=== PATIENT | female | born 1945 | race Caucasian/White ===

== ENCOUNTER 2018-02-03 09:54 | Observation (INO) | payer OTHER ==
[~2018-02-03] VITALS: Ht 167.6 cm; Wt 99.9 kg
[~2018-02-03 09:54] MED LIST: ALDACTONE25 MG PO; ALPRAZOLAM0.25 MG PO; ASPIR 8181 M1 PO; ASPIRIN81 M1 PO; AVAPRO300 MG PO; AVAPRO75 MG PO; Aldactone PO; Ascorbic Acid PO; Aspirin Chewable PO; BIOTIN1000 MICRO PO; Biotin PO; CALCIO DEL MAR500 MG PO; CALCIUM500 M4 PO; CARDIZEM CD120 M1 PO; CARDIZEM CD240 MG PO; CARDIZEM120 MG PO; CARTIA XT180 MG PO; CATAPRES0.1 MG PO; CATAPRES0.2 MG PO; CIPRO500 MG PO; CIPRO750 MG PO; COUMADIN PO; COUMADIN,JANTOVE2 MG PO; Cardizem CD,Cartia X PO; DILTIAZEM 24HR360 M1 PO; EFFER-K 10 MEQ10 MEQ PO; FLAGYL500 MG PO; FLECAINIDE ACE100 M1 PO; FLINTSTONES1 TABLET PO; Flintstones PO; HEMATOGEN SOFT1 EACH PO; HYDROCODON-ACE1 EAC7 PO; K-DUR20 MEQ PO; KLOR-CON M2020 MEQ PO; LISINOPRIL40 MG PO; Lopressor PO; MARTINIC1 EACH PO; METOPROLOL SUCC25 MG PO; MIRALAX, GLYCOL1 PK1 PO; MIRALAX17 GM PO; NORVASC10 MG PO; PAXIL10 MG PO; PERCOCET 5-3251 EACH PO; PRINZIDE 20-121 EACH PO; PROTONIX40 MG PO; SPIRONOLACTONE25 MG PO; TAMBOCOR50 MG PO; TAZTIA XT360 M1 PO; TESSALON PERLE100 MG PO; THERAGRAN1 TABLET PO; Tambocor PO; Tums PO; Tylenol Regular Stre PO; VITAMIN B-12500 MC4 PO; VITAMIN D5000 INTUN PO; Vitamin B-12 PO; XANAX0.25 MG PO; XARELTO10 MG PO; XARELTO20 MG PO; ZESTRIL20 MG PO; ZESTRIL40 MG PO; ZYRTEC10 M2 PO; Zestoretic,Prinzide PO; Zestril,Prinivil PO; [UNRECOGNIZED DRUG - REMARK]
[2018-02-03 10:29] LABS: BASOPHIL (%) 0.2 % (0-1); EOSINOPHIL (%) 0.5 % (0-5); HEMATOCRIT 41.5 % (36.0-46.0); IMMATURE GRANULOCYTE (%) 0.3 % (0.0-0.7); LYMPHOCYTE (%) 8.7 % (15-42); LYMPHOCYTE COUNT 0.8 K/uL (1.0-2.8); MCH 29.8 PG (29.0-34.0); MCHC 33.7 G/DL (30.0-36.0); MCV 88.3 FL (83-99); MONOCYTE (%) 5.5 % (3-12); MONOCYTE COUNT 0.5 K/uL (0-0.8); NEUTROPHIL (%) 84.8 % (45-76); NEUTROPHIL COUNT 7.3 K/uL (1.8-6.4); PLATELET COUNT 180 K/uL (156-360); RBC DIS.WIDTH-CV 12.1 % (11.8-14.6); RBC DIS.WIDTH-SD 39.5 % (39-53); WHITE BLOOD COUNT 8.6 K/uL (4.1-10.2)
[2018-02-03 10:34] LABS: INTER. NORMALIZED RATIO 2.3
[2018-02-03 10:37] LABS: CHLORIDE 109 mEq/L (99-109); POTASSIUM 4.9 mEq/L (3.7-5.4); PTT 33.2 SEC (25-37); SODIUM 139 mEq/L (136-147)
[2018-02-03 10:39] LABS: GLUCOSE 133 mg/dL (70-99)
[2018-02-03 10:43] LABS: CREATININE 1.5 mg/dL (0.6-1.3); GFR ESTIMATE (CALCULATED) 36 mL/min/
[2018-02-03 10:44] LABS: UREA NITROGEN (BUN) 29 mg/dL (9-23)
[2018-02-03 10:49] LABS: TROP-I INTERPRETATION NEGATIVE; TROPONIN-I < 0.01 ng/mL (0.0-0.30)
[2018-02-03] MEDS ORDERED: METOPROLOL SUCC25 MG PO (13:31)
[2018-02-03] MEDS ORDERED: CYANOCOBALAM1000 MCG PO (13:32)
[2018-02-03 16:26] VITALS: BP 137/70
[2018-02-03 18:15] VITALS: BP 146/68
[2018-02-03 23:27] VITALS: BP 168/76
[2018-02-04] VITALS (7 sets, daily range): BP systolic 104–194; BP diastolic 58–84
[2018-02-04 06:20] LABS: HEMATOCRIT 43.5 % (36.0-46.0); HEMOGLOBIN 14.4 G/DL (11.9-15.5); MCH 29.6 PG (29.0-34.0); MCHC 33.1 G/DL (30.0-36.0); MCV 89.3 FL (83-99); PLATELET COUNT 177 K/uL (156-360); RBC DIS.WIDTH-CV 12.1 % (11.8-14.6); RBC DIS.WIDTH-SD 39.5 % (39-53); RED BLOOD COUNT 4.87 M/uL (3.80-5.20); WHITE BLOOD COUNT 5.5 K/uL (4.1-10.2)
[2018-02-04 06:33] LABS: CHLORIDE 108 MEQ/L (99-109); CREATININE 1.5 MG/DL (0.6-1.3); GFR ESTIMATE (CALCULATED) 36 mL/min/; GLUCOSE 145 mg/dL (70-99); POTASSIUM 5.2 MEQ/L (3.7-5.4); SODIUM 138 MEQ/L (136-147); UREA NITROGEN (BUN) 25 mg/dL (9-23)
[2018-02-04 11:24] LABS: APPEARANCE CLEAR ((CLEAR)); BILIRUBIN NEGATIVE; BLOOD NEGATIVE; COLOR YELLOW ((YELLOW)); GLUCOSE (STRIP) NEGATIVE; KETONES NEGATIVE; NITRITE NEGATIVE; PROTEIN (STRIP) NEGATIVE; SPECIFIC GRAVITY 1.018 (1.000-1.030); UROBILINOGEN 0.2 MG/DL (0.2-1.0)
[2018-02-04 11:26] LABS: LEUKOCYTES NEGATIVE; UCUL ADDED? NO
[2018-02-05 03:14] VITALS: BP 128/69
[2018-02-05 06:59] LABS: BASOPHIL (%) 0.1 % (0-1); EOSINOPHIL (%) 0 % (0-5); HEMATOCRIT 39.3 % (36.0-46.0); HEMOGLOBIN 13.1 G/DL (11.9-15.5); IMMATURE GRANULOCYTE (%) 0.5 % (0.0-0.7); LYMPHOCYTE (%) 5.5 % (15-42); LYMPHOCYTE COUNT 0.6 K/uL (1.0-2.8); MCH 28.9 PG (29.0-34.0); MCHC 33.3 G/DL (30.0-36.0); MCV 86.6 FL (83-99); MONOCYTE (%) 2.5 % (3-12); MONOCYTE COUNT 0.3 K/uL (0-0.8); NEUTROPHIL (%) 91.4 % (45-76); NEUTROPHIL COUNT 9.2 K/uL (1.8-6.4); PLATELET COUNT 202 K/uL (156-360); RBC DIS.WIDTH-SD 38.5 % (39-53); RED BLOOD COUNT 4.54 M/uL (3.80-5.20); WHITE BLOOD COUNT 10.1 K/uL (4.1-10.2)
[2018-02-05 07:04] VITALS: BP 140/64
[2018-02-05 07:23] LABS: CHLORIDE 109 MEQ/L (99-109); CREATININE 1.4 MG/DL (0.6-1.3); GFR ESTIMATE (CALCULATED) 39 mL/min/; GLUCOSE 147 mg/dL (70-99); MAGNESIUM 1.9 mg/dl (1.3-2.7); POTASSIUM 4.8 MEQ/L (3.7-5.4); SODIUM 141 MEQ/L (136-147); UREA NITROGEN (BUN) 34 mg/dL (9-23)
[2018-02-05] MEDS ORDERED: ANTIVERT25 MG PO (11:16)
[2018-02-05] MEDS ORDERED: PREDNISONE10 MG PO (11:19)
[2018-02-05 11:37] VITALS: BP 140/74
[2018-02-05 15:38] VITALS: BP 150/74
[2018-02-05 19:42] VITALS: BP 132/60
[2018-02-06 00:26] VITALS: BP 113/56
[2018-02-06 04:02] VITALS: BP 123/61
[2018-02-06 08:13] VITALS: BP 189/83
[2018-02-06 11:00] VITALS: BP 139/67
[2018-02-06 16:14] VITALS: BP 140/71
== END 2018-02-06 19:01 | disposition home or self-care (01) ==
LOC: EME → EDBD 09:54 → EME 09:54 → 5WEST 13:51 → EDOF 13:51 → ENRESERV 13:58 → EDOF 14:12 → ENRESERV 14:31 → 5WEST 15:08 → ENPENDDIS 02-06 → 5WEST 02-06 15:29
PROVIDERS: Emergency Medicine; Internal Medicine; Physician Assistant
DX: R42 Dizziness and giddiness (principal); R11.2 Nausea with vomiting, unspecified; R26.89 Other abnormalities of gait and mobility; I48.2 Chronic atrial fibrillation; Z79.01 Long term (current) use of anticoagulants; I12.9 Hypertensive chronic kidney disease with stage 1 through stage 4 chronic kidney disease, or unspecified chronic kidney disease; N18.3 Chronic kidney disease, stage 3 (moderate); I25.10 Atherosclerotic heart disease of native coronary artery without angina pectoris; I49.5 Sick sinus syndrome; Z95.0 Presence of cardiac pacemaker; K21.9 Gastro-esophageal reflux disease without esophagitis; F32.9 Major depressive disorder, single episode, unspecified; Z87.19 Personal history of other diseases of the digestive system; Z90.710 Acquired absence of both cervix and uterus; Z98.84 Bariatric surgery status; Z87.891 Personal history of nicotine dependence; Z88.0 Allergy status to penicillin; Z88.5 Allergy status to narcotic agent; Z91.041 Radiographic dye allergy status; Z82.49 Family history of ischemic heart disease and other diseases of the circulatory system; Z82.0 Family history of epilepsy and other diseases of the nervous system
CPT/HCPCS: 70450; 71045; 80048; 81003; 83735; 84484; 85025; 85027; 85610; 85730; 93005; 93880; 97530 GO; 97530 GP; 99281; 99285; G0378; G8978 GP CJ; G8979 GP CI; J2405; J2930; J7030

== ENCOUNTER 2018-02-15 10:56 | Inpatient (IN) | payer OTHER ==
[~2018-02-15] VITALS: Ht 167.6 cm; Wt 99.4 kg
[~2018-02-15 10:56] MED LIST changes: +ANTIVERT25 MG PO; +CYANOCOBALAM1000 MCG PO; +DILTIAZEM 24HR240 MG PO; -DILTIAZEM 24HR360 M1 PO; +PREDNISONE10 MG PO
[2018-02-15 12:16] LABS: APPEARANCE SL.HAZY ((CLEAR)); BILIRUBIN SMALL; BLOOD SMALL; COLOR AMBER ((YELLOW)); GLUCOSE (STRIP) NEGATIVE; KETONES NEGATIVE; LEUKOCYTES MODERATE; NITRITE NEGATIVE; PROTEIN (STRIP) 100; SPECIFIC GRAVITY 1.023 (1.000-1.030)
[2018-02-15 12:33] LABS: BASOPHIL (%) 0.1 % (0-1); EOSINOPHIL (%) 0.8 % (0-5); EOSINOPHIL COUNT 0.1 K/uL (0-0.3); HEMATOCRIT 41.3 % (36.0-46.0); HEMOGLOBIN 13.8 G/DL (11.9-15.5); IMMATURE GRANULOCYTE (%) 1.3 % (0.0-0.7); LYMPHOCYTE (%) 7.7 % (15-42); LYMPHOCYTE COUNT 0.9 K/uL (1.0-2.8); MCH 29.6 PG (29.0-34.0); MCHC 33.4 G/DL (30.0-36.0); MCV 88.6 FL (83-99); MONOCYTE (%) 7.6 % (3-12); MONOCYTE COUNT 0.9 K/uL (0-0.8); NEUTROPHIL (%) 82.5 % (45-76); NEUTROPHIL COUNT 9.9 K/uL (1.8-6.4); PLATELET COUNT 212 K/uL (156-360); RBC DIS.WIDTH-CV 12.4 % (11.8-14.6); RBC DIS.WIDTH-SD 40.4 % (39-53); RED BLOOD COUNT 4.66 M/uL (3.80-5.20); WHITE BLOOD COUNT 12.1 K/uL (4.1-10.2)
[2018-02-15 12:36] LABS: BACTERIA RARE /HPF; EPITHELIAL CELLS 1+ /HPF; MUCUS NONE SEEN /LPF; RED BLOOD CELLS RARE /HPF (0-5); UCUL ADDED? YES
[2018-02-15 12:45] LABS: ALBUMIN 3.2 g/dL (3.2-4.8); CHLORIDE 105 mEq/L (99-109); POTASSIUM 3.7 mEq/L (3.7-5.4); SODIUM 140 mEq/L (136-147)
[2018-02-15 12:48] LABS: GLUCOSE 103 mg/dL (70-99); TOTAL PROTEIN 6.2 g/dL (6.4-8.3)
[2018-02-15 12:50] LABS: TOTAL BILIRUBIN 0.9 mg/dL (0.0-1.0)
[2018-02-15 12:51] LABS: ALKALINE PHOSPHATASE 112 IU/L (3-129); CREATININE 1.4 mg/dL (0.6-1.3); GFR ESTIMATE (CALCULATED) 39 mL/min/
[2018-02-15 12:52] LABS: UREA NITROGEN (BUN) 17 mg/dL (9-23)
[2018-02-15 12:53] LABS: AST (GOT) 12 IU/L (2-34)
[2018-02-15 12:54] LABS: ALT (GPT) 18 IU/L (3-49)
[2018-02-15 12:55] LABS: LIPASE 11 U/L (1.0-51.0)
[2018-02-15] MEDS ORDERED: MECLIZINE HCL25 MG PO (16:06)
[2018-02-15] MEDS ORDERED: DAILY VALUE1 EACH PO (16:06)
[2018-02-15 18:04] VITALS: BP 143/65
[2018-02-15 19:20] VITALS: BP 118/57
[2018-02-15 21:19] VITALS: BP 131/63
[2018-02-15 23:40] VITALS: BP 135/61
[2018-02-16 03:52] VITALS: BP 119/56
[2018-02-16 06:43] LABS: BASOPHIL (%) 0.1 % (0-1); CHLORIDE 107 MEQ/L (99-109); CREATININE 1.1 MG/DL (0.6-1.3); EOSINOPHIL (%) 1.6 % (0-5); EOSINOPHIL COUNT 0.1 K/uL (0-0.3); GFR ESTIMATE (CALCULATED) 52 mL/min/; GLUCOSE 105 mg/dL (70-99); HEMATOCRIT 36.1 % (36.0-46.0); LYMPHOCYTE (%) 9.5 % (15-42); LYMPHOCYTE COUNT 0.8 K/uL (1.0-2.8); MCH 29.7 PG (29.0-34.0); MCHC 32.7 G/DL (30.0-36.0); MCV 90.9 FL (83-99); MONOCYTE (%) 7.9 % (3-12); MONOCYTE COUNT 0.7 K/uL (0-0.8); NEUTROPHIL (%) 79.9 % (45-76); PLATELET COUNT 158 K/uL (156-360); POTASSIUM 4.5 MEQ/L (3.7-5.4); RBC DIS.WIDTH-CV 12.4 % (11.8-14.6); RBC DIS.WIDTH-SD 41.1 % (39-53); RED BLOOD COUNT 3.97 M/uL (3.80-5.20); SODIUM 140 MEQ/L (136-147); UREA NITROGEN (BUN) 14 mg/dL (9-23); WHITE BLOOD COUNT 8.7 K/uL (4.1-10.2)
[2018-02-16 06:54] LABS: HEMOGLOBIN 11.8 G/DL (11.9-15.5)
[2018-02-16 08:06] VITALS: BP 117/56
[2018-02-16 12:29] VITALS: BP 106/57
[2018-02-16 16:11] VITALS: BP 137/67
[2018-02-16 19:47] VITALS: BP 118/57
[2018-02-16 23:38] VITALS: BP 101/54
[2018-02-17 06:47] LABS: BASOPHIL (%) 0.1 % (0-1); EOSINOPHIL (%) 1.6 % (0-5); EOSINOPHIL COUNT 0.1 K/uL (0-0.3); HEMATOCRIT 34.8 % (36.0-46.0); HEMOGLOBIN 11.3 G/DL (11.9-15.5); IMMATURE GRANULOCYTE (%) 0.7 % (0.0-0.7); LYMPHOCYTE (%) 10.2 % (15-42); LYMPHOCYTE COUNT 0.7 K/uL (1.0-2.8); MCH 29.4 PG (29.0-34.0); MCHC 32.5 G/DL (30.0-36.0); MCV 90.4 FL (83-99); MONOCYTE (%) 8.9 % (3-12); MONOCYTE COUNT 0.6 K/uL (0-0.8); NEUTROPHIL (%) 78.5 % (45-76); NEUTROPHIL COUNT 5.5 K/uL (1.8-6.4); PLATELET COUNT 160 K/uL (156-360); RBC DIS.WIDTH-CV 12.5 % (11.8-14.6); RBC DIS.WIDTH-SD 41.2 % (39-53); RED BLOOD COUNT 3.85 M/uL (3.80-5.20)
[2018-02-17 07:07] LABS: ALBUMIN 2.4 G/DL (3.2-4.8); CHLORIDE 107 MEQ/L (99-109); CREATININE 1.1 MG/DL (0.6-1.3); GFR ESTIMATE (CALCULATED) 52 mL/min/; GLUCOSE 101 mg/dL (70-99); PHOSPHORUS 3.2 mg/dL (2.5-4.9); POTASSIUM 3.8 MEQ/L (3.7-5.4); SODIUM 139 MEQ/L (136-147); UREA NITROGEN (BUN) 11 mg/dL (9-23)
[2018-02-17 07:55] VITALS: BP 132/60
[2018-02-17 09:08] LABS: C DIFF TOXIN POSITIVE (NEGATIVE)
[2018-02-17 15:28] VITALS: BP 116/56
[2018-02-18 00:41] VITALS: BP 132/60
[2018-02-18 07:47] VITALS: BP 140/60
[2018-02-18 09:12] LABS: HEMATOCRIT 36.5 % (36.0-46.0); HEMOGLOBIN 11.9 G/DL (11.9-15.5); MCH 29.5 PG (29.0-34.0); MCHC 32.6 G/DL (30.0-36.0); MCV 90.3 FL (83-99); PLATELET COUNT 205 K/uL (156-360); RBC DIS.WIDTH-CV 12.4 % (11.8-14.6); RBC DIS.WIDTH-SD 41.2 % (39-53); RED BLOOD COUNT 4.04 M/uL (3.80-5.20); WHITE BLOOD COUNT 7.6 K/uL (4.1-10.2)
[2018-02-18 09:37] LABS: CHLORIDE 104 MEQ/L (99-109); CREATININE 1.2 MG/DL (0.6-1.3); GFR ESTIMATE (CALCULATED) 47 mL/min/; GLUCOSE 84 mg/dL (70-99); POTASSIUM 4.2 MEQ/L (3.7-5.4); SODIUM 139 MEQ/L (136-147); UREA NITROGEN (BUN) 7 mg/dL (9-23)
[2018-02-18 17:06] VITALS: BP 100/78
[2018-02-18 23:21] VITALS: BP 144/78
[2018-02-19 06:29] LABS: BASOPHIL (%) 0.2 % (0-1); EOSINOPHIL (%) 2.2 % (0-5); EOSINOPHIL COUNT 0.1 K/uL (0-0.3); HEMATOCRIT 33.7 % (36.0-46.0); IMMATURE GRANULOCYTE (%) 0.7 % (0.0-0.7); LYMPHOCYTE (%) 15.5 % (15-42); LYMPHOCYTE COUNT 0.7 K/uL (1.0-2.8); MCHC 32.6 G/DL (30.0-36.0); MCV 88.9 FL (83-99); MONOCYTE (%) 11.4 % (3-12); MONOCYTE COUNT 0.5 K/uL (0-0.8); NEUTROPHIL COUNT 3.2 K/uL (1.8-6.4); PLATELET COUNT 174 K/uL (156-360); RBC DIS.WIDTH-CV 12.4 % (11.8-14.6); RBC DIS.WIDTH-SD 40.5 % (39-53); RED BLOOD COUNT 3.79 M/uL (3.80-5.20); WHITE BLOOD COUNT 4.6 K/uL (4.1-10.2)
[2018-02-19 07:07] LABS: ALBUMIN 2.4 G/DL (3.2-4.8); ALKALINE PHOSPHATASE 73 IU/L (3-129); ALT (GPT) 9 IU/L (3-49); AST (GOT) 11 IU/L (2-34); CHLORIDE 108 MEQ/L (99-109); CREATININE 1.1 MG/DL (0.6-1.3); GFR ESTIMATE (CALCULATED) 52 mL/min/; GLUCOSE 90 mg/dL (70-99); POTASSIUM 4.2 MEQ/L (3.7-5.4); SODIUM 142 MEQ/L (136-147); TOTAL BILIRUBIN 0.4 MG/DL (0.0-1.0); TOTAL PROTEIN 4.3 G/DL (6.4-8.3); UREA NITROGEN (BUN) 7 mg/dL (9-23)
[2018-02-19 07:31] VITALS: BP 124/73
[2018-02-19] MEDS ORDERED: METRONIDAZOLE500 MG PO (10:30)
== END 2018-02-19 15:40 | disposition home health service (06) | DRG 392 ==
LOC: EME 10:56 → EDOF 16:06 → 2EAST 16:06 → ENRESERV 16:07 → 2EAST 17:55 → ENPENDDIS 02-19 15:37 → 2EAST 02-19 15:40
PROVIDERS: Emergency Medicine; Hospitalist; Internal Medicine Gastroenterology
DX: K57.32 Diverticulitis of large intestine without perforation or abscess without bleeding (principal); A04.72 Enterocolitis due to Clostridium difficile, not specified as recurrent; E86.0 Dehydration; I48.2 Chronic atrial fibrillation; I12.9 Hypertensive chronic kidney disease with stage 1 through stage 4 chronic kidney disease, or unspecified chronic kidney disease; N18.3 Chronic kidney disease, stage 3 (moderate); D64.9 Anemia, unspecified; R42 Dizziness and giddiness; K21.9 Gastro-esophageal reflux disease without esophagitis; F32.9 Major depressive disorder, single episode, unspecified; E66.9 Obesity, unspecified; Z68.35 Body mass index [BMI] 35.0-35.9, adult; F41.9 Anxiety disorder, unspecified; Z95.0 Presence of cardiac pacemaker; Z90.710 Acquired absence of both cervix and uterus; Z98.84 Bariatric surgery status; Z87.891 Personal history of nicotine dependence; Z79.01 Long term (current) use of anticoagulants; Z88.0 Allergy status to penicillin; Z88.5 Allergy status to narcotic agent; Z91.041 Radiographic dye allergy status
CPT/HCPCS: 74176; 80048; 80053; 80069; 81003; 83630; 83690; 85025; 85027; 87086; 87493; 87506; 93005; 99281; 99285; J0744; J1170; J2405; J3010; J7030; S0030